=== PATIENT | female | born 1950 | race African-American/Black ===

== ENCOUNTER 2017-01-13 18:17 | Inpatient (IN) | payer MEDICARE, MEDICAID ==
--- NOTE | 2017-01-13 20:57 | ED Physician Chart ---
ED Chief Complaint/HPI - Patient Information Date Seen:: 01/13/17 Time Seen:: 20:45 Chief Complaint:: lesions both buttocks History of Present Illness:: 6 days ago patient developed a painful lesion on her left buttocks. This morning she noticed a lesion on the right buttocks. No chills or fever. In September of this year patient had head trauma and since then has had vertigo which is improving. She's had a CAT scan and MRI of her brain which were negative. Allergies:: Allergies Allergy/AdvReac Type Severity Reaction Status Date / Time Penicillins Allergy Verified 01/13/17 18:33 Vitals:: Vital Signs - 8 hr 01/13/17 18:33 Temp 98.1 F HR 66 RR 18 BP 138/77 O2 Sat % 97 Historian:: Patient Review:: Nurse's Note Reviewed ED Review of Systems - Review of Systems General/Constitutional: No fever, No chills Skin: Skin lesions Head: No headache Eyes: No loss of vision ENT: No earache Neck: No neck pain Cardio Vascular: No chest pain, No palpitations Pulmonary: No SOB GI: No nausea, No vomiting, No diarrhea G/U: No dysuria, No frequency, No nacturia Musculoskeletal: No bone or joint pain Endocrine: No polyuria, No polydipsia Psychiatric: Depression Hematopoietic: No bruising Allergic/Immuno: No urticaria Neurological: No syncope ED Past Medical History - Past Medical History Past Medical History: HTN, Arthritis, Other (fibromyalgia) Family History: Heart disease, HTN Social History: Non Smoker, No Alcohol, Other (quit smoking 1996) Surgical History: Cholecystectomy, other (gastric bypass; bilateral knee replacement) Psychiatricy History: Depression Medication: Reviewed Family Medical History - Family Member Mother Ethnicity: Non- ED Physical Exam - Physical Examination General/Constitutional: Well-developed, well-nourished, Alert, No distress Head: Atraumatic Eyes: Lids, conjuctiva normal, PERRL Other Skin comments:: Left hemibuttocks: 3 cm of induration with 10 cm of adjacent redness. Right hemibuttocks: 3 cm of induration with overlying redness ENMT: External ears, nose nl, TM canals nl, Nasal exam nl, Lips, teeth, gums nl Neck: No nuchal rigidity Respiratory: Nl effort/Exclusion, Clear to Auscultation, No Wheeze/Rhonchi/Rales Cardio Vascular: RRR, No murmur, gallop, rubs, NL S1 S2 GI: No tenderness/rebounding/guarding, No organomegaly, Nondistended : No CVA tenderness Extremities: Normal digits & nails Neuro/Psych: No focal deficits Misc: Normal back ED Labs/Radiology/EKG Results - Lab Results Results: Laboratory Results - last 24 hr 01/13/17 01/13/17 20:54 20:54 WBC 5.5 RBC 4.02 Hgb 11.5 L Hct 35.4 L MCV 88.0 MCH 28.6 MCHC Differential 32.5 RDW 13.8 Plt Count 227 MPV 8.3 Neutrophils % 43.1 Lymphocytes % 40.6 Monocytes % 9.3 Eosinophils % 6.4 H Basophils % 0.6 Sodium 137 Potassium 3.6 Chloride 107 Carbon Dioxide 25.8 Anion Gap 7.8 BUN 24 Creatinine 0.9 Est GFR ( Amer) > 60.0 Est GFR (Non-Af Amer) > 60.0 BUN/Creatinine Ratio 26.7 Glucose 86 Calcium 9.2 ED Assessment - Assessment General Assessment: Abscesses appear to be too deep in the tissue for me to comfortably I&D in the emergency department. ED Septic Shock - . Is Septic Shock (SBP<90, OR Lactate>4 mmol\L) present?: No - <6hrs of presentation: Vital Signs: Vital Signs - 8 hr 01/13/17 18:33 Temp 98.1 F HR 66 RR 18 BP 138/77 O2 Sat % 97 ED Reassessment (Disposition) - Reassessment Reassessment Condition:: Unchanged - Diagnosis Diagnosis:: Abscess both buttocks - Patient Disposition Spoke to:: Myron Dee Admitting Medical Physician:: Myron Dee Condition at Disposition:: Stable, Unchanged
[2017-01-13] MEDS ORDERED: Sodium Chloride 0.9% 1,000 ML IV ONE (21:01)
[2017-01-13] MEDS ORDERED: Vancomycin HCl 1.5 GM in Sodium Chloride 0.9% 500 ML IV ONE (21:02)
[2017-01-13 21:05] LABS: % BASOPHILS 0.6 % (0.0-2.0); % EOSINOPHILS 6.4 % (0.0-5.0); % LYMPHOCYTES 40.6 % (20.0-50.0); % MONOCYTES 9.3 % (2.0-10.0); % NEUTROPHILS 43.1 % (40.0-80.0); HEMATOCRIT 35.4 % (41.0-60); HEMOGLOBIN 11.5 gm/dL (12-16); MEAN CORPUSCULAR HEMOGLOBIN 28.6 pg (27.0-31.0); MEAN CORPUSCULAR HGB CONC 32.5 pg (28.0-36.0); MEAN PLATELET VOLUME 8.3 fl; NEUTROPHILE ABSOLUTE 2.4 Th/cmm (1.8-8.0); PLATELET COUNT 227 Th/cmm (150-400); RED BLOOD COUNT 4.02 Mil/cmm (3.80-5.10); RED CELL DISTRIBUTION WIDTH 13.8 % (11.5-20.0); WHITE BLOOD COUNT 5.5 Th/cmm (4.8-10.8)
[2017-01-13 21:16] LABS: ANION GAP 7.8 (7.0-16.0); BUN - UREA NITROGEN 24 mg/dL (7-25); BUN/CREATININE RATIO 26.7; CALCIUM SERUM 9.2 mg/dL (8.6-10.3); CARBON DIOXIDE 25.8 mEq/L (21.0-31.0); CHLORIDE 107 mEq/L (98-107); CREATININE - SERUM 0.9 mg/dL (0.6-1.2); GLUCOSE 86 mg/dL (70-105); POTASSIUM SERUM 3.6 mEq/L (3.5-5.1); SODIUM SERUM 137 mEq/L (136-145)
[2017-01-13] MEDS ORDERED: Morphine Sulfate 2 mg/mL 1mL Syr IVP PRN (22:12)
[2017-01-13] MEDS: Morphine Sulfate 2 mg/mL 1mL Syr IVP PRN (23:43)
--- NOTE | 2017-01-14 01:43 | Consultation ---
Consult Note - Consult Note Service Date: 01/13/17 Referring Physician: Myron Dee Consult Note: PHYSICIAN Consultation Note: Date of Admission: 01/13/17 Purpose of Consultation: left gluteal cellulitis. Chief Complaint: Patient SHANEKA MATSON was admitted to [facility] with CELLULITIS OF LEFT BUTTOCK. History of Present Illness: 66 year old female with history of HTN, obesity, admitted for tender,red swelling on the gluteal area. On initial evaluation,her temperature was 98.1 degree F an WBC Count was 5,500. Vanco IV and Zosyn IV was given and ID cosnult was called for antibiotic management. Past Medical History: Allergies Allergy/AdvReac Type Severity Reaction Status Date / Time Penicillins Allergy Verified 01/13/17 18:33 Vital Signs Temp 97.3 F 01/13/17 23:36 Pulse 70 01/13/17 23:36 Resp 19 01/13/17 23:36 BP 121/58 01/13/17 23:36 Pulse Ox 98 01/13/17 23:36 Home Medication Medication Instructions Recorded Type Acetaminophen [Tylenol] 650 mg PO Q6HR PRN 01/13/17 History Albuterol Sulfate [Proair 108 mcg IH Q4H PRN 01/13/17 History Respiclick] Bisacodyl [Dulcolax] 10 mg RC DAILY PRN 01/13/17 History Diazepam [Valium] 2.5 mg PO HS 01/13/17 History Enalapril Maleate [Vasotec*] 20 mg PO DAILY 01/13/17 History Gabapentin [Neurontin] 100 mg PO BID 01/13/17 History Hydroxyzine HCl 50 mg PO DAILY 01/13/17 History Magnesium Hydroxide [Milk of 30 ml PO DAILY PRN 01/13/17 History Magnesia] Meclizine HCl 25 mg PO TID 01/13/17 History Omeprazole 20.6 mg PO BID 01/13/17 History Ondansetron [Zofran ODT] 4 mg PO TID PRN 01/13/17 History Petrolatum,White/Lanolin [Vitamin 113 gm TP BID 01/13/17 History A & D Ointment] Scopolamine [Transderm-Scop] 1 each TD Q72H 01/13/17 History traMADol HCl [Ultram*] 50 mg PO Q6HR 01/13/17 History traMADol HCl [Ultram*] 100 mg PO Q12H PRN 01/13/17 History Current Medications Generic Name Dose Route Start Last Admin Trade Name Freq PRN Reason Stop Dose Admin Piperacillin Sod/Tazobactam 50 mls @ 100 mls/hr 01/13/17 22:15 Sod 3.375 gm/ Sodium Chloride IV 03/14/17 22:14 Q8H CHOCO Miscellaneous 1 ea 01/13/17 22:12 Vancomycin Iv Per Pharmacy 03/14/17 22:11 PRN PRN PROTOCOL Morphine Sulfate 1 mg 01/13/17 22:12 Morphine IVP 03/14/17 22:14 Q3H PRN Pain (Moderate) Morphine Sulfate 2 mg 01/13/17 22:12 01/13/17 23:43 Morphine IVP 03/14/17 22:14 2 mg Q3H PRN Administration Pain (Severe) Ondansetron HCl 4 mg 01/13/17 22:12 Zofran IV 03/14/17 22:14 Q4H PRN Nausea Review of Systems: A 12 point ROS was reviewed with the pertinent positive and negatives noted in the HPI. Social History Smoking Status Never smoker Drug Use No Alcohol Use No Family Medical History Family Medical History Start: 01/13/17 23: 36 Freq: ONCE Status: Active Document 01/13/17 23:36 SCOTT (Rec: 01/14/17 01:03 SCOTT [id number]) Family Medical History Mother History Unknown Yes Ethnicity Non- Living Status Unknown Hx Family Cancer No Hx Family Coronary Artery Disease No Hx Family Congestive Heart Failure No Hx Family Hypertension Yes Hx Family Stroke No Hx Family Diabetes No Hx Family Seizures No Hx Family Dementia No Hx Family AIDS No Hx Family HIV No Hx Family COPD No Hx Family Hepatitis No Hx Family Psychiatric Problems No Hx Family Tuberculosis No Physical Exam: General: Obese, not in acute distress. no fever. HEENT: Head normocephalic, atraumatic. Oral cavity moist, pink tongue, eyes: pallor present. Neck: Supple, no JVD, no carotuid bruit. Cardio: S1 and S2 WNL. Respiratory: CTAP Abdominal: Soft NT ND BS present. Genital/Urinary: deferred. Extremities: NCCE, tender firm erythematous swelling on the leteral aspect left gluteal area. Neurological: AAox3, no focal neurodeficit. Assessment: 1. Left gluteal abscess. 2. Obesity, Morbid. 3. HTN, 4. Arthritis. 5. Fibromyalgia Plan: Contue vancO IV and surgery consult. ANA thorpe. Thank you, Dr Dee for involving me in taking care of this patient. Signed, José Miguel Augustin M.D. [id number]
[2017-01-14] MEDS: Morphine Sulfate 2 mg/mL 1mL Syr IVP PRN ×4 (03:16→20:01)
[2017-01-14 04:15] VITALS: BP 121/58
[2017-01-14 07:40] LABS: % BASOPHILS 0.6 % (0.0-2.0); % EOSINOPHILS 7.1 % (0.0-5.0); % LYMPHOCYTES 42.3 % (20.0-50.0); % MONOCYTES 9.9 % (2.0-10.0); % NEUTROPHILS 40.1 % (40.0-80.0); HEMATOCRIT 32.4 % (41.0-60); HEMOGLOBIN 10.4 gm/dL (12-16); MEAN CELL VOLUME 88.4 fl (81-100); MEAN CORPUSCULAR HEMOGLOBIN 28.2 pg (27.0-31.0); MEAN CORPUSCULAR HGB CONC 31.9 pg (28.0-36.0); MEAN PLATELET VOLUME 8.7 fl; NEUTROPHILE ABSOLUTE 1.7 Th/cmm (1.8-8.0); PLATELET COUNT 220 Th/cmm (150-400); RED BLOOD COUNT 3.67 Mil/cmm (3.80-5.10); RED CELL DISTRIBUTION WIDTH 13.9 % (11.5-20.0); WHITE BLOOD COUNT 4.2 Th/cmm (4.8-10.8)
[2017-01-14] MEDS ORDERED: Albuterol Nebulizer 2.5mg/3mL HHN PRN (07:44)
[2017-01-14] MEDS ORDERED: Magnesium Hydroxide (MOM) 30 mL UDC PO PRN (07:44)
[2017-01-14 08:06] LABS: ANION GAP 8.4 (7.0-16.0); BUN - UREA NITROGEN 21 mg/dL (7-25); BUN/CREATININE RATIO 26.3; CALCIUM SERUM 8.9 mg/dL (8.6-10.3); CHLORIDE 108 mEq/L (98-107); CREATININE - SERUM 0.8 mg/dL (0.6-1.2); POTASSIUM SERUM 3.4 mEq/L (3.5-5.1); SODIUM SERUM 138 mEq/L (136-145)
--- NOTE | 2017-01-14 08:22 | Diagnostic Imaging Report ---
Exam: Chest x-ray HISTORY: Congestive heart failure. COMPARISON none. Upright examination a chest at 0747 hours reviewed. The study demonstrates no active pulmonic infiltrates or effusions. Mild left basilar atelectasis is noted. Bony thorax intact. Mediastinal structures midline. Left-sided PICC line terminates in left axillary vein. IMPRESSION: no acute disease, mild left basilar atelectasis.
[2017-01-14] MEDS: Pantoprazole 40 mg EC Tab PO SCH (08:36)
[2017-01-14] MEDS: Vitamin A/Vitamin D 5 gm Packet TP SCH ×2 (08:43→17:00)
[2017-01-14 09:26] LABS: GLUCOSE 96 mg/dL (70-105)
[2017-01-14] MEDS: Scopolamine 1.5 mg/ 72 hr TDM TD SCH (10:06)
--- NOTE | 2017-01-14 11:04 | History and Physical ---
History of Present Illness - HPI Chief Complaint: painful lesions both buttocks HPI: This a 66 year old female who is a resident of [facility] who is brought here to [facility] for painful bilateral buttock lesion for x1 week, patient did not have any fevers at the custodial. Vital Signs: Last Vital Signs Temp 98 F 01/14/17 07:00 Pulse 70 01/14/17 08:35 Resp 19 01/14/17 07:00 BP 122/60 01/14/17 08:35 Pulse Ox 98 01/14/17 07:00 Past Medical History Other History: HTN, Arthritis,fibromyalgia Family Medical History - Family Member Mother History Unknown: Yes Ethnicity: Non- Living Status: Unknown Hx Family Cancer: No Hx Family Coronary Artery Disease: No Hx Family Congestive Heart Failure: No Hx Family Hypertension: Yes Hx Family Stroke: No Hx Family Diabetes: No Hx Family Seizures: No Hx Family Dementia: No Hx Family AIDS: No Hx Family HIV: No Hx Family COPD: No Hx Family Hepatitis: No Hx Family Psychiatric Problems: No Hx Family Tuberculosis: No Social History Smoke: Quit Alcohol: None Drugs: None Lives: Longterm - Medications Home Medications: Home Medication Medication Instructions Recorded Type Acetaminophen [Tylenol] 650 mg PO Q6HR PRN 01/13/17 History Albuterol Sulfate [Proair 108 mcg IH Q4H PRN 01/13/17 History Respiclick] Bisacodyl [Dulcolax] 10 mg RC DAILY PRN 01/13/17 History Diazepam [Valium] 2.5 mg PO HS 01/13/17 History Enalapril Maleate [Vasotec*] 20 mg PO DAILY 01/13/17 History Gabapentin [Neurontin] 100 mg PO BID 01/13/17 History Hydroxyzine HCl 50 mg PO DAILY 01/13/17 History Magnesium Hydroxide [Milk of 30 ml PO DAILY PRN 01/13/17 History Magnesia] Meclizine HCl 25 mg PO TID 01/13/17 History Omeprazole 20.6 mg PO BID 01/13/17 History Ondansetron [Zofran ODT] 4 mg PO TID PRN 01/13/17 History Petrolatum,White/Lanolin [Vitamin 113 gm TP BID 01/13/17 History A & D Ointment] Scopolamine [Transderm-Scop] 1 each TD Q72H 01/13/17 History traMADol HCl [Ultram*] 50 mg PO Q6HR 01/13/17 History traMADol HCl [Ultram*] 100 mg PO Q12H PRN 01/13/17 History - Allergies Allergies/Adverse Reactions: Allergies Allergy/AdvReac Type Severity Reaction Status Date / Time Penicillins Allergy Verified 01/13/17 18:33 Review of Systems - Review of Systems Constitutional: Report: No Significant Eyes: Report: No Significant ENT: Report: No Significant Respiratory: Report: No Significant Cardiovascular: Report: No Significant Gastrointestinal: Report: No Significant Genitourinary: Report: No Significant Musculoskeletal: Report: No Significant Skin: Report: Other (bilateral buttock cellulitis ) Neurological: Report: No Significant Physical Exam - Physical Exam HEENT: Report: Ears Nose Throat within normal limits Neck: Report: Within normal limits Cardiovascular Systems: Report: +s1/s2 noted Respiratory: Report: Breath Sounds are within normal limits Abdomen: Report: Non-tender to palpation Back: Report: Inspection of back is within normal limits. Extremities: Report: Non-tender to palpation. Skin: Report: Color of skin is within normal limits, Warm, Other (bilateral buttock cellulitis) Neuro/Psych: Report: Mood affect is within normal limits, A+Ox3 - Lab Results All Lab Results last 24 hours: Laboratory Results - last 24 hr 01/14/17 01/14/17 01/14/17 03:19 07:00 07:00 WBC 4.2 L D RBC 3.67 L Hgb 10.4 L Hct 32.4 L MCV 88.4 MCH 28.2 MCHC Differential 31.9 RDW 13.9 Plt Count 220 MPV 8.7 Neutrophils % 40.1 Lymphocytes % 42.3 Monocytes % 9.9 Eosinophils % 7.1 H Basophils % 0.6 Sodium 138 Potassium 3.4 L Chloride 108 H Carbon Dioxide 25.0 Anion Gap 8.4 BUN 21 Creatinine 0.8 Est GFR ( Amer) > 60.0 Est GFR (Non-Af Amer) > 60.0 BUN/Creatinine Ratio 26.3 Glucose 96 D POC Glucose 81 Calcium 8.9 - Assessment Assessment: Current Active Problems Problem Status Onset LEFT HIP PAIN AND SWELLING Acute hypokalemia bilateral buttock cellulitis HTN Arthritis fibromyalgia - Plan Plan: surgical consult for i+d empiric ivantibiotics id consult follow up labs in am
--- NOTE | 2017-01-14 11:50 | Infectious Disease Prog Note ---
Infectious Disease Subjective - Review of Systems Service Date: 01/14/17 Subjective: no change. painful left gluteal area. Infectious Disease Objective - Results Result Diagrams: 01/14/17 07:00 01/14/17 07:00 Recent Labs: Laboratory Last Values WBC 4.2 Th/cmm (4.8-10.8) L D 01/14/17 07:00 RBC 3.67 Mil/cmm (3.80-5.10) L 01/14/17 07:00 Hgb 10.4 gm/dL (12-16) L 01/14/17 07:00 Hct 32.4 % (41.0-60) L 01/14/17 07:00 MCV 88.4 fl (81-100) 01/14/17 07:00 MCH 28.2 pg (27.0-31.0) 01/14/17 07:00 MCHC Differential 31.9 pg (28.0-36.0) 01/14/17 07:00 RDW 13.9 % (11.5-20.0) 01/14/17 07:00 Plt Count 220 Th/cmm (150-400) 01/14/17 07:00 MPV 8.7 fl 01/14/17 07:00 Neutrophils % 40.1 % (40.0-80.0) 01/14/17 07:00 Lymphocytes % 42.3 % (20.0-50.0) 01/14/17 07:00 Monocytes % 9.9 % (2.0-10.0) 01/14/17 07:00 Eosinophils % 7.1 % (0.0-5.0) H 01/14/17 07:00 Basophils % 0.6 % (0.0-2.0) 01/14/17 07:00 Sodium 138 mEq/L (136-145) 01/14/17 07:00 Potassium 3.4 mEq/L (3.5-5.1) L 01/14/17 07:00 Chloride 108 mEq/L (98-107) H 01/14/17 07:00 Carbon Dioxide 25.0 mEq/L (21.0-31.0) 01/14/17 07:00 Anion Gap 8.4 (7.0-16.0) 01/14/17 07:00 BUN 21 mg/dL (7-25) 01/14/17 07:00 Creatinine 0.8 mg/dL (0.6-1.2) 01/14/17 07:00 Est GFR ( Amer) > 60.0 ml/min (>90) 01/14/17 07:00 Est GFR (Non-Af Amer) > 60.0 ml/min 01/14/17 07:00 BUN/Creatinine Ratio 26.3 01/14/17 07:00 Glucose 96 mg/dL (70-105) D 01/14/17 07:00 POC Glucose 81 MG/DL (70 - 105) 01/14/17 03:19 Calcium 8.9 mg/dL (8.6-10.3) 01/14/17 07:00 - Physical Exam Vitals and I&O: Vital Signs Temp 98.3 F 01/14/17 08:00 Pulse 70 01/14/17 08:35 Resp 18 01/14/17 08:00 BP 122/60 01/14/17 08:35 Pulse Ox 100 01/14/17 08:00 Intake & Output 01/13/17 01/14/17 01/14/17 18:59 06:59 18:59 Weight (lbs) 120.202 kg Active Medications: Current Medications Acetaminophen (Tylenol) 650 mg PO Q6HR PRN PRN Reason: MILD PAIN OR TEMP >100.4 Stop: 03/15/17 07:43 Albuterol Sulfate (Albuterol 2.5mg/3ml Neb Ud) 2.5 mg HHN Q4HRT PRN PRN Reason: SOB/WHEEZING Stop: 03/15/17 07:43 Bisacodyl (Dulcolax 10 Mg Supp) 10 mg RC DAILY PRN PRN Reason: IF MOM INEFFECTIVE Stop: 03/15/17 07:43 Diazepam (Valium) 2.5 mg PO HS CHOCO PRN Reason: Protocol Stop: 03/15/17 20:59 Enalapril Maleate (Vasotec) 20 mg PO DAILY [facility] Stop: 03/15/17 08:59 Last Admin: 01/14/17 08:35 Dose: 20 mg Gabapentin (Neurontin) 100 mg PO BID [facility] Stop: 03/15/17 08:59 Last Admin: 01/14/17 09:07 Dose: 100 mg Hydroxyzine HCl (Atarax) 50 mg PO DAILY [facility] Stop: 03/15/17 08:59 Last Admin: 01/14/17 08:34 Dose: 50 mg Vancomycin HCl 1.5 gm/ Sodium (Chloride) 500 mls @ 250 mls/hr IV Q12H [facility] Stop: 03/15/17 10:59 Magnesium Hydroxide (Milk Of Magnesia) 30 ml PO DAILY PRN PRN Reason: Constipation Stop: 03/15/17 07:43 Meclizine HCl (Antivert) 25 mg PO TID PRN PRN Reason: VERTIGO Stop: 03/15/17 08:59 Miscellaneous (Vancomycin Iv Per Pharmacy) 1 ea MC PRN PRN PRN Reason: PROTOCOL Stop: 03/14/17 22:11 Morphine Sulfate (Morphine) 1 mg IVP Q3H PRN PRN Reason: Pain (Moderate) Stop: 03/14/17 22:14 Morphine Sulfate (Morphine) 2 mg IVP Q3H PRN PRN Reason: Pain (Severe) Stop: 03/14/17 22:14 Last Admin: 01/14/17 06:36 Dose: 2 mg Ondansetron HCl (Zofran) 4 mg IV Q4H PRN PRN Reason: Nausea Stop: 03/14/17 22:14 Ondansetron HCl (Zofran Odt) 4 mg PO TID PRN PRN Reason: Nausea / Vomiting Stop: 03/15/17 07:43 Pantoprazole Sodium (Protonix) 40 mg PO DAILY [facility] Stop: 03/15/17 08:59 Last Admin: 01/14/17 08:36 Dose: 40 mg Scopolamine (Transderm Scop Patch) 1 patch TD Q72H [facility] Stop: 03/15/17 08:59 Last Admin: 01/14/17 10:06 Dose: 1 patch Tramadol HCl (Ultram) 100 mg PO Q12H PRN PRN Reason: BREAK THROUGH PAIN Stop: 03/15/17 07:43 Last Admin: 01/14/17 09:08 Dose: 100 mg Vitamin A (Vitamin A & D) 5 gm TP BID [facility] Stop: 03/15/17 08:59 Last Admin: 01/14/17 08:43 Dose: 5 gm General: no acute distress, well developed, well nourished HEENT: atraumatic, normocephalic, PERRLA Neck: supple, thyromegaly, lymphadenopathy Cardiovascular: S1S2, regular Lungs: clear to auscultation bilaterally, clear to percussion Abdomen: soft, no tender, no distended, no mass Extremities: no cyanosis, no clubbing Neurological: no awake Infectious Disease Assmt/Plan - Problem List Patient Problems: All Active Problems LEFT HIP PAIN AND SWELLING (Acute) - Assessment Assessment: 1. Left gluteal abscess. 2. Obesity, Morbid. 3. HTN, 4. Arthritis. 5. Fibromyalgia Plan: Contue vancO IV and surgery consult.
[2017-01-14] MEDS ORDERED: Meperidine 25 mg/mL 1mL Syr IVP PRN (15:08)
[2017-01-14] MEDS ORDERED: Lactated Ringer 1,000 ML IV SCH (15:15)
[2017-01-14] MEDS: Vancomycin HCl 1.5 GM in Sodium Chloride 0.9% 500 ML IV SCH ×2 (17:00→22:52)
--- NOTE | 2017-01-14 17:17 | History & Physical ---
ADMIT DATE: 01/14/2017 SURGICAL CONSULTATION REFERRING PHYSICIAN: Dr. Dee. REASON FOR CONSULTATION: Abscess, left and right buttocks. Thank you for referring this patient to me. HISTORY OF PRESENT ILLNESS: This is a 66-year-old female who started noticing swelling and increasing pain in the left buttock about 6 days ago. Denies any fever associated with this. She has an abscess, which still present in the right buttock as well. PAST MEDICAL HISTORY: Includes head trauma from a year ago, for which developed vertigo, which is improving. She has obesity and sleep apnea as well. LABORATORY STUDIES: On admission, the WBC was normal, hemoglobin 11.5. The chemistry, the blood sugar was 86, rest of were within normal limits. DIAGNOSTIC DATA: Chest x-ray is unremarkable. She has been seen by Dr. Guy Augustin for Infectious Disease consult and the patient is started on antibiotics. PHYSICAL EXAMINATION: GENERAL: Now, the patient is oriented. She is extremely obese. There is a left buttock abscess, which is tender and with surrounding cellulitis and on the right side one that is appears to be healing. She denies any trauma in this area, but apparently she lies down on this side. PLAN: We will do incision and drainage under moderate sedation and local anesthesia. JOB# [id number]
--- NOTE | 2017-01-14 20:52 | Operative Report ---
DATE OF SURGERY: 01/14/2017 PREOPERATIVE DIAGNOSES: 1. Abscess, left buttocks. 2. Abscess, right buttocks. 3. Morbid obesity. 4. Sleep apnea. 5. Traumatic head injury with vertigo. POSTOPERATIVE DIAGNOSES: 1. Abscess, left buttocks. 2. Abscess, right buttocks. 3. Morbid obesity. 4. Sleep apnea. 5. Traumatic head injury with vertigo. OPERATION DONE: 1. Incision and drainage of abscess, left hip. 2. Incision and drainage of abscess, right hip. SURGEON: Gunner Foreman MD ANESTHESIA: MAC. ANESTHESIOLOGIST: Lawanda Barcenas M.D. ESTIMATED BLOOD LOSS: None. PROCEDURE: The patient was given IV sedation. Both buttocks were prepped with Betadine and draped. A 1% lidocaine was used to infiltrate the area surrounding the abscess. An incision was made across the dome of the abscess and the abscess was drained. Cultures were taken. Following satisfactory hemostasis, the wound was packed with iodoform gauze. This was done for both buttocks abscess. A 4 x 4s and tapes were then applied. The patient tolerated the procedure well. JOB# [id number]
[2017-01-14] MEDS ORDERED: HYDROmorphone 1 mg/mL 1mL Syr IVP PRN (22:00)
[2017-01-14] MEDS ORDERED: HYDROmorphone 2 mg/mL 1mL Vial IVP PRN (22:00)
[2017-01-15 05:50] LABS: RED CELL DISTRIBUTION WIDTH 13.7 % (11.5-20.0)
[2017-01-15 05:56] LABS: % BASOPHILS 0.4 % (0.0-2.0); % LYMPHOCYTES 31.3 % (20.0-50.0); % MONOCYTES 10.7 % (2.0-10.0); % NEUTROPHILS 52.6 % (40.0-80.0); HEMATOCRIT 33.3 % (41.0-60); MEAN CELL VOLUME 88.1 fl (81-100); MEAN CORPUSCULAR HEMOGLOBIN 29.2 pg (27.0-31.0); MEAN CORPUSCULAR HGB CONC 33.1 pg (28.0-36.0); MEAN PLATELET VOLUME 9.3 fl; NEUTROPHILE ABSOLUTE 2.7 Th/cmm (1.8-8.0); PLATELET COUNT 209 Th/cmm (150-400); RED BLOOD COUNT 3.78 Mil/cmm (3.80-5.10)
[2017-01-15 05:58] LABS: WHITE BLOOD COUNT 5.2 Th/cmm (4.8-10.8)
[2017-01-15 05:59] LABS: ALKALINE PHOSPHATASE 72 U/L (34-104); ANION GAP 7.2 (7.0-16.0); BILIRUBIN,TOTAL 0.4 mg/dL (0.3-1.0); BUN - UREA NITROGEN 15 mg/dL (7-25); BUN/CREATININE RATIO 18.8; CALCIUM SERUM 9.1 mg/dL (8.6-10.3); CARBON DIOXIDE 27.5 mEq/L (21.0-31.0); CHLORIDE 104 mEq/L (98-107); CREATININE - SERUM 0.8 mg/dL (0.6-1.2); POTASSIUM SERUM 3.7 mEq/L (3.5-5.1); SGOT 19 U/L (13-39); SGPT/ALT 15 U/L (7-52); SODIUM SERUM 135 mEq/L (136-145)
[2017-01-15 06:00] LABS: GLUCOSE 73 mg/dL (70-105)
[2017-01-15] MEDS: Pantoprazole 40 mg EC Tab PO SCH (08:29)
[2017-01-15] MEDS: Vitamin A/Vitamin D 5 gm Packet TP SCH ×2 (08:32→17:11)
[2017-01-15] MEDS: Morphine Sulfate 2 mg/mL 1mL Syr IVP PRN ×3 (10:06→23:12)
--- NOTE | 2017-01-16 06:39 | Progress Notes ---
DATE: 01/15/2017 SUBJECTIVE: The patient was seen in her room, lying on the bed. The patient denies any pain or discomfort. Otherwise, the patient appeared to be comfortable in no acute distress. OBJECTIVE: VITAL SIGNS: Temperature 98.3, heart rate 73, blood pressure 127/72, respirations 16, 96% on room air. HEENT: Head is atraumatic and normocephalic. Eyes: Bilateral conjunctivae are clear. Bilateral pupils are equally round and reactive. NECK: Supple. No JVD. CARDIOVASCULAR: S1 and S2, without murmur. PULMONARY: Clear to auscultation. GASTROINTESTINAL: Soft and nontender without guarding. Positive bowel sounds. MUSCULOSKELETAL: No clubbing, no cyanosis noted. ASSESSMENT: 1. Abscess bilateral buttocks, status post excision and drainage on the left and right hip. 2. Morbid obesity. 3. Sleep apnea. 4. Arthritis. 5. Hypertension. 6. Fibromyalgia. PLAN: We will keep the patient inpatient and we will continue IV antibiotics per ID doctor. We will continue to monitor incisional site for any signs of infection. Treatment plan were discussed with the patient's nurse. Treatment plans were discussed with Dr. Dee. JOB# [id number]
--- NOTE | 2017-01-16 08:12 | General Progress Note ---
Subjective - Review of Systems Events since last encounter: patient is awake in no distress comfortable Objective - Results Result Diagrams: 01/15/17 05:10 01/15/17 05:10 Recent Labs: Laboratory Last Values WBC 5.2 Th/cmm (4.8-10.8) D 01/15/17 05:10 RBC 3.78 Mil/cmm (3.80-5.10) L 01/15/17 05:10 Hgb 11.0 gm/dL (12-16) L 01/15/17 05:10 Hct 33.3 % (41.0-60) L 01/15/17 05:10 MCV 88.1 fl (81-100) 01/15/17 05:10 MCH 29.2 pg (27.0-31.0) 01/15/17 05:10 MCHC Differential 33.1 pg (28.0-36.0) 01/15/17 05:10 RDW 13.7 % (11.5-20.0) 01/15/17 05:10 Plt Count 209 Th/cmm (150-400) 01/15/17 05:10 MPV 9.3 fl 01/15/17 05:10 Neutrophils % 52.6 % (40.0-80.0) 01/15/17 05:10 Lymphocytes % 31.3 % (20.0-50.0) 01/15/17 05:10 Monocytes % 10.7 % (2.0-10.0) H 01/15/17 05:10 Eosinophils % 5.0 % (0.0-5.0) 01/15/17 05:10 Basophils % 0.4 % (0.0-2.0) 01/15/17 05:10 Sodium 135 mEq/L (136-145) L 01/15/17 05:10 Potassium 3.7 mEq/L (3.5-5.1) 01/15/17 05:10 Chloride 104 mEq/L (98-107) 01/15/17 05:10 Carbon Dioxide 27.5 mEq/L (21.0-31.0) 01/15/17 05:10 Anion Gap 7.2 (7.0-16.0) 01/15/17 05:10 BUN 15 mg/dL (7-25) 01/15/17 05:10 Creatinine 0.8 mg/dL (0.6-1.2) 01/15/17 05:10 Est GFR ( Amer) > 60.0 ml/min (>90) 01/15/17 05:10 Est GFR (Non-Af Amer) > 60.0 ml/min 01/15/17 05:10 BUN/Creatinine Ratio 18.8 01/15/17 05:10 Glucose 73 mg/dL (70-105) D 01/15/17 05:10 POC Glucose 81 MG/DL (70 - 105) 01/14/17 03:19 Calcium 9.1 mg/dL (8.6-10.3) 01/15/17 05:10 Total Bilirubin 0.4 mg/dL (0.3-1.0) 01/15/17 05:10 AST 19 U/L (13-39) 01/15/17 05:10 ALT 15 U/L (7-52) 01/15/17 05:10 Alkaline Phosphatase 72 U/L (34-104) 01/15/17 05:10 Total Protein 7.1 gm/dL (6.0-8.3) 01/15/17 05:10 Albumin 3.5 gm/dL (3.7-5.3) L 01/15/17 05:10 Globulin 3.6 gm/dL 01/15/17 05:10 Albumin/Globulin Ratio 1.0 (1.0-1.8) 01/15/17 05:10 Vancomycin Trough 19.6 ug/mL (10-20) 01/15/17 10:00 - Physical Exam Vitals and I&O: Vital Signs Temp 98.2 F 01/16/17 04:00 Pulse 77 01/16/17 04:00 Resp 20 01/16/17 04:00 BP 136/77 01/16/17 04:00 Pulse Ox 98 01/16/17 04:00 Intake & Output 01/15/17 01/16/17 01/16/17 18:59 06:59 18:59 Intake Total 2400 250 Balance 2400 250 Weight (lbs) 119.748 kg 122.64 kg Intake: Intake, IV Amount 750 250 Vancomycin HCl 1 gm In 250 250 Sodium Chloride 0.9% 250 ml @ 165 mls/hr IV Q12HR@ 1100,2300 [facility] Rx#: [id number] Vancomycin HCl 1.5 gm In 500 Sodium Chloride 0.9% 500 ml @ 250 mls/hr IV Q12H [facility] Rx#:[id number] Oral 1650 Other: # Voids 4 # Bowel Movements 0 Active Medications: Current Medications Acetaminophen (Tylenol) 650 mg PO Q6HR PRN PRN Reason: MILD PAIN OR TEMP >100.4 Stop: 03/15/17 07:43 Last Admin: 01/15/17 08:36 Dose: 650 mg Albuterol Sulfate (Albuterol 2.5mg/3ml Neb Ud) 2.5 mg HHN Q4HRT PRN PRN Reason: SOB/WHEEZING Stop: 03/15/17 07:43 Bisacodyl (Dulcolax 10 Mg Supp) 10 mg RC DAILY PRN PRN Reason: IF MOM INEFFECTIVE Stop: 03/15/17 07:43 Diazepam (Valium) 2.5 mg PO HS [facility] PRN Reason: Protocol Stop: 03/15/17 20:59 Last Admin: 01/15/17 20:39 Dose: 2.5 mg Enalapril Maleate (Vasotec) 20 mg PO DAILY [facility] Stop: 03/15/17 08:59 Last Admin: 01/15/17 08:29 Dose: 20 mg Gabapentin (Neurontin) 100 mg PO BID [facility] Stop: 03/15/17 08:59 Last Admin: 01/15/17 17:10 Dose: 100 mg Hydromorphone HCl (Dilaudid) 1 mg IVP Q3HR PRN PRN Reason: pain Stop: 03/15/17 21:59 Hydromorphone HCl (Dilaudid) 2 mg IVP Q3HR PRN PRN Reason: Severe Pain Stop: 03/15/17 21:59 Last Admin: 01/14/17 22:52 Dose: 2 mg Hydroxyzine HCl (Atarax) 50 mg PO QID [facility] Stop: 03/16/17 05:59 Last Admin: 01/15/17 22:19 Dose: Not Given Vancomycin HCl 1 gm/ Sodium (Chloride) 250 mls @ 165 mls/hr IV Q12HR@1100,2300 [facility] Stop: 03/16/17 11:09 Last Infusion: 01/16/17 06:24 Dose: Infused Lidocaine HCl (Xylocaine Viscous 2%) 15 ml PO QID PRN PRN Reason: Mouth Sore Pain Stop: 03/15/17 17:41 Last Admin: 01/15/17 08:29 Dose: 15 ml Magnesium Hydroxide (Milk Of Magnesia) 30 ml PO DAILY PRN PRN Reason: Constipation Stop: 03/15/17 07:43 Meclizine HCl (Antivert) 25 mg PO TID PRN PRN Reason: VERTIGO Stop: 03/15/17 08:59 Miscellaneous (Vancomycin Iv Per Pharmacy) 1 ea [facility] PRN PRN PRN Reason: PROTOCOL Stop: 03/14/17 22:11 Morphine Sulfate (Morphine) 2 mg IVP Q3H PRN PRN Reason: Pain (Severe) Stop: 03/16/17 09:56 Last Admin: 01/15/17 23:12 Dose: 2 mg Ondansetron HCl (Zofran) 4 mg IV Q4H PRN PRN Reason: Nausea Stop: 03/14/17 22:14 Ondansetron HCl (Zofran Odt) 4 mg PO TID PRN PRN Reason: Nausea / Vomiting Stop: 03/15/17 07:43 Pantoprazole Sodium (Protonix) 40 mg PO DAILY [facility] Stop: 03/15/17 08:59 Last Admin: 01/15/17 08:29 Dose: 40 mg Scopolamine (Transderm Scop Patch) 1 patch TD Q72H [facility] Stop: 03/15/17 08:59 Last Admin: 01/14/17 10:06 Dose: 1 patch Tramadol HCl (Ultram) 100 mg PO Q6HR PRN PRN Reason: BREAK THROUGH PAIN Stop: 03/15/17 07:43 Last Admin: 01/15/17 20:39 Dose: 100 mg Vitamin A (Vitamin A & D) 5 gm TP BID [facility] Stop: 03/15/17 08:59 Last Admin: 01/15/17 17:11 Dose: 5 gm Assessment/Plan - Problem List Patient Problems: All Active Problems LEFT HIP PAIN AND SWELLING (Acute)
[2017-01-16] MEDS: Pantoprazole 40 mg EC Tab PO SCH (08:18)
[2017-01-16] MEDS: Vitamin A/Vitamin D 5 gm Packet TP SCH ×2 (08:18→17:42)
[2017-01-16] MEDS: Morphine Sulfate 2 mg/mL 1mL Syr IVP PRN ×3 (10:44→20:59)
--- NOTE | 2017-01-16 12:30 | General Progress Note ---
Subjective - Review of Systems Service Date: 01/16/17 Events since last encounter: local wound care history of head trauma, check carotid doppler Objective - Results Result Diagrams: 01/15/17 05:10 01/15/17 05:10 Recent Labs: Laboratory Last Values WBC 5.2 Th/cmm (4.8-10.8) D 01/15/17 05:10 RBC 3.78 Mil/cmm (3.80-5.10) L 01/15/17 05:10 Hgb 11.0 gm/dL (12-16) L 01/15/17 05:10 Hct 33.3 % (41.0-60) L 01/15/17 05:10 MCV 88.1 fl (81-100) 01/15/17 05:10 MCH 29.2 pg (27.0-31.0) 01/15/17 05:10 MCHC Differential 33.1 pg (28.0-36.0) 01/15/17 05:10 RDW 13.7 % (11.5-20.0) 01/15/17 05:10 Plt Count 209 Th/cmm (150-400) 01/15/17 05:10 MPV 9.3 fl 01/15/17 05:10 Neutrophils % 52.6 % (40.0-80.0) 01/15/17 05:10 Lymphocytes % 31.3 % (20.0-50.0) 01/15/17 05:10 Monocytes % 10.7 % (2.0-10.0) H 01/15/17 05:10 Eosinophils % 5.0 % (0.0-5.0) 01/15/17 05:10 Basophils % 0.4 % (0.0-2.0) 01/15/17 05:10 Sodium 135 mEq/L (136-145) L 01/15/17 05:10 Potassium 3.7 mEq/L (3.5-5.1) 01/15/17 05:10 Chloride 104 mEq/L (98-107) 01/15/17 05:10 Carbon Dioxide 27.5 mEq/L (21.0-31.0) 01/15/17 05:10 Anion Gap 7.2 (7.0-16.0) 01/15/17 05:10 BUN 15 mg/dL (7-25) 01/15/17 05:10 Creatinine 0.8 mg/dL (0.6-1.2) 01/15/17 05:10 Est GFR ( Amer) > 60.0 ml/min (>90) 01/15/17 05:10 Est GFR (Non-Af Amer) > 60.0 ml/min 01/15/17 05:10 BUN/Creatinine Ratio 18.8 01/15/17 05:10 Glucose 73 mg/dL (70-105) D 01/15/17 05:10 POC Glucose 81 MG/DL (70 - 105) 01/14/17 03:19 Calcium 9.1 mg/dL (8.6-10.3) 01/15/17 05:10 Total Bilirubin 0.4 mg/dL (0.3-1.0) 01/15/17 05:10 AST 19 U/L (13-39) 01/15/17 05:10 ALT 15 U/L (7-52) 01/15/17 05:10 Alkaline Phosphatase 72 U/L (34-104) 01/15/17 05:10 Total Protein 7.1 gm/dL (6.0-8.3) 01/15/17 05:10 Albumin 3.5 gm/dL (3.7-5.3) L 01/15/17 05:10 Globulin 3.6 gm/dL 01/15/17 05:10 Albumin/Globulin Ratio 1.0 (1.0-1.8) 01/15/17 05:10 Vancomycin Trough 19.6 ug/mL (10-20) 01/15/17 10:00 - Physical Exam Vitals and I&O: Vital Signs Temp 97.7 F 01/16/17 08:00 Pulse 73 01/16/17 08:18 Resp 12 01/16/17 08:11 BP 160/80 01/16/17 08:18 Pulse Ox 97 01/16/17 08:11 Intake & Output 01/15/17 01/16/17 01/16/17 18:59 06:59 18:59 Intake Total 2400 250 Balance 2400 250 Weight (lbs) 119.748 kg 122.64 kg Intake: Intake, IV Amount 750 250 Vancomycin HCl 1 gm In 250 250 Sodium Chloride 0.9% 250 ml @ 165 mls/hr IV Q12HR@ 1100,2300 [facility] Rx#: [id number] Vancomycin HCl 1.5 gm In 500 Sodium Chloride 0.9% 500 ml @ 250 mls/hr IV Q12H [facility] Rx#:[id number] Oral 1650 Other: # Voids 4 # Bowel Movements 0 Active Medications: Current Medications Acetaminophen (Tylenol) 650 mg PO Q6HR PRN PRN Reason: MILD PAIN OR TEMP >100.4 Stop: 03/15/17 07:43 Last Admin: 01/15/17 08:36 Dose: 650 mg Albuterol Sulfate (Albuterol 2.5mg/3ml Neb Ud) 2.5 mg HHN Q4HRT PRN PRN Reason: SOB/WHEEZING Stop: 03/15/17 07:43 Bisacodyl (Dulcolax 10 Mg Supp) 10 mg RC DAILY PRN PRN Reason: IF MOM INEFFECTIVE Stop: 03/15/17 07:43 Diazepam (Valium) 2.5 mg PO HS [facility] PRN Reason: Protocol Stop: 03/15/17 20:59 Last Admin: 01/15/17 20:39 Dose: 2.5 mg Enalapril Maleate (Vasotec) 20 mg PO DAILY [facility] Stop: 03/15/17 08:59 Last Admin: 01/16/17 08:18 Dose: 20 mg Gabapentin (Neurontin) 100 mg PO BID [facility] Stop: 03/15/17 08:59 Last Admin: 01/16/17 08:18 Dose: 100 mg Hydromorphone HCl (Dilaudid) 1 mg IVP Q3HR PRN PRN Reason: pain Stop: 03/15/17 21:59 Hydromorphone HCl (Dilaudid) 2 mg IVP Q3HR PRN PRN Reason: Severe Pain Stop: 03/15/17 21:59 Last Admin: 01/14/17 22:52 Dose: 2 mg Hydroxyzine HCl (Atarax) 50 mg PO QID [facility] Stop: 03/16/17 05:59 Last Admin: 01/16/17 08:18 Dose: 50 mg Vancomycin HCl 1 gm/ Sodium (Chloride) 250 mls @ 165 mls/hr IV Q12HR@1100,2300 [facility] Stop: 03/16/17 11:09 Last Admin: 01/16/17 10:46 Dose: 165 mls/hr Lidocaine HCl (Xylocaine Viscous 2%) 15 ml PO QID PRN PRN Reason: Mouth Sore Pain Stop: 03/15/17 17:41 Last Admin: 01/15/17 08:29 Dose: 15 ml Magnesium Hydroxide (Milk Of Magnesia) 30 ml PO DAILY PRN PRN Reason: Constipation Stop: 03/15/17 07:43 Meclizine HCl (Antivert) 25 mg PO TID PRN PRN Reason: VERTIGO Stop: 03/15/17 08:59 Miscellaneous (Vancomycin Iv Per Pharmacy) 1 ea [facility] PRN PRN PRN Reason: PROTOCOL Stop: 03/14/17 22:11 Morphine Sulfate (Morphine) 2 mg IVP Q3H PRN PRN Reason: Pain (Severe) Stop: 03/16/17 09:56 Last Admin: 01/16/17 10:44 Dose: 2 mg Ondansetron HCl (Zofran) 4 mg IV Q4H PRN PRN Reason: Nausea Stop: 03/14/17 22:14 Ondansetron HCl (Zofran Odt) 4 mg PO TID PRN PRN Reason: Nausea / Vomiting Stop: 03/15/17 07:43 Pantoprazole Sodium (Protonix) 40 mg PO DAILY [facility] Stop: 03/15/17 08:59 Last Admin: 01/16/17 08:18 Dose: 40 mg Scopolamine (Transderm Scop Patch) 1 patch TD Q72H [facility] Stop: 03/15/17 08:59 Last Admin: 01/14/17 10:06 Dose: 1 patch Tramadol HCl (Ultram) 100 mg PO Q6HR PRN PRN Reason: BREAK THROUGH PAIN Stop: 03/15/17 07:43 Last Admin: 01/15/17 20:39 Dose: 100 mg Vitamin A (Vitamin A & D) 5 gm TP BID [facility] Stop: 03/15/17 08:59 Last Admin: 01/16/17 08:18 Dose: 5 gm Assessment/Plan - Problem List Patient Problems: All Active Problems LEFT HIP PAIN AND SWELLING (Acute)
[2017-01-16] MEDS ORDERED: Probiotic Screen MC PRN (14:42)
--- NOTE | 2017-01-16 16:24 | Infectious Disease Prog Note ---
Infectious Disease Subjective - Review of Systems Service Date: 01/16/17 Events since last encounter: I and D was performed on 01/14/2017. Subjective: no change. painful left gluteal area, improving. Congested nose. Infectious Disease Objective - Results Result Diagrams: 01/15/17 05:10 01/15/17 05:10 Recent Labs: Laboratory Last Values WBC 5.2 Th/cmm (4.8-10.8) D 01/15/17 05:10 RBC 3.78 Mil/cmm (3.80-5.10) L 01/15/17 05:10 Hgb 11.0 gm/dL (12-16) L 01/15/17 05:10 Hct 33.3 % (41.0-60) L 01/15/17 05:10 MCV 88.1 fl (81-100) 01/15/17 05:10 MCH 29.2 pg (27.0-31.0) 01/15/17 05:10 MCHC Differential 33.1 pg (28.0-36.0) 01/15/17 05:10 RDW 13.7 % (11.5-20.0) 01/15/17 05:10 Plt Count 209 Th/cmm (150-400) 01/15/17 05:10 MPV 9.3 fl 01/15/17 05:10 Neutrophils % 52.6 % (40.0-80.0) 01/15/17 05:10 Lymphocytes % 31.3 % (20.0-50.0) 01/15/17 05:10 Monocytes % 10.7 % (2.0-10.0) H 01/15/17 05:10 Eosinophils % 5.0 % (0.0-5.0) 01/15/17 05:10 Basophils % 0.4 % (0.0-2.0) 01/15/17 05:10 Sodium 135 mEq/L (136-145) L 01/15/17 05:10 Potassium 3.7 mEq/L (3.5-5.1) 01/15/17 05:10 Chloride 104 mEq/L (98-107) 01/15/17 05:10 Carbon Dioxide 27.5 mEq/L (21.0-31.0) 01/15/17 05:10 Anion Gap 7.2 (7.0-16.0) 01/15/17 05:10 BUN 15 mg/dL (7-25) 01/15/17 05:10 Creatinine 0.8 mg/dL (0.6-1.2) 01/15/17 05:10 Est GFR ( Amer) > 60.0 ml/min (>90) 01/15/17 05:10 Est GFR (Non-Af Amer) > 60.0 ml/min 01/15/17 05:10 BUN/Creatinine Ratio 18.8 01/15/17 05:10 Glucose 73 mg/dL (70-105) D 01/15/17 05:10 POC Glucose 81 MG/DL (70 - 105) 01/14/17 03:19 Calcium 9.1 mg/dL (8.6-10.3) 01/15/17 05:10 Total Bilirubin 0.4 mg/dL (0.3-1.0) 01/15/17 05:10 AST 19 U/L (13-39) 01/15/17 05:10 ALT 15 U/L (7-52) 01/15/17 05:10 Alkaline Phosphatase 72 U/L (34-104) 01/15/17 05:10 Total Protein 7.1 gm/dL (6.0-8.3) 01/15/17 05:10 Albumin 3.5 gm/dL (3.7-5.3) L 01/15/17 05:10 Globulin 3.6 gm/dL 01/15/17 05:10 Albumin/Globulin Ratio 1.0 (1.0-1.8) 01/15/17 05:10 Vancomycin Trough 19.6 ug/mL (10-20) 01/15/17 10:00 - Physical Exam Vitals and I&O: Vital Signs Temp 97.2 F 01/16/17 12:00 Pulse 66 01/16/17 12:00 Resp 20 01/16/17 12:00 BP 120/76 01/16/17 12:00 Pulse Ox 98 01/16/17 12:00 Intake & Output 01/15/17 01/16/17 01/16/17 18:59 06:59 18:59 Intake Total 2400 250 Balance 2400 250 Weight (lbs) 119.748 kg 122.64 kg Intake: Intake, IV Amount 750 250 Vancomycin HCl 1 gm In 250 250 Sodium Chloride 0.9% 250 ml @ 165 mls/hr IV Q12HR@ 1100,2300 [facility] Rx#: [id number] Vancomycin HCl 1.5 gm In 500 Sodium Chloride 0.9% 500 ml @ 250 mls/hr IV Q12H [facility] Rx#:[id number] Oral 1650 Other: # Voids 4 # Bowel Movements 0 Active Medications: Current Medications Acetaminophen (Tylenol) 650 mg PO Q6HR PRN PRN Reason: MILD PAIN OR TEMP >100.4 Stop: 03/15/17 07:43 Last Admin: 01/15/17 08:36 Dose: 650 mg Albuterol Sulfate (Albuterol 2.5mg/3ml Neb Ud) 2.5 mg HHN Q4HRT PRN PRN Reason: SOB/WHEEZING Stop: 03/15/17 07:43 Bisacodyl (Dulcolax 10 Mg Supp) 10 mg RC DAILY PRN PRN Reason: IF MOM INEFFECTIVE Stop: 03/15/17 07:43 Diazepam (Valium) 2.5 mg PO HS [facility] PRN Reason: Protocol Stop: 03/15/17 20:59 Last Admin: 01/15/17 20:39 Dose: 2.5 mg Enalapril Maleate (Vasotec) 20 mg PO DAILY [facility] Stop: 03/15/17 08:59 Last Admin: 01/16/17 08:18 Dose: 20 mg Gabapentin (Neurontin) 100 mg PO BID [facility] Stop: 03/15/17 08:59 Last Admin: 01/16/17 08:18 Dose: 100 mg Hydromorphone HCl (Dilaudid) 1 mg IVP Q3HR PRN PRN Reason: pain Stop: 03/15/17 21:59 Hydromorphone HCl (Dilaudid) 2 mg IVP Q3HR PRN PRN Reason: Severe Pain Stop: 03/15/17 21:59 Last Admin: 01/14/17 22:52 Dose: 2 mg Hydroxyzine HCl (Atarax) 50 mg PO QID [facility] Stop: 03/16/17 05:59 Last Admin: 01/16/17 12:39 Dose: 50 mg Vancomycin HCl 1 gm/ Sodium (Chloride) 250 mls @ 165 mls/hr IV Q12HR@1100,2300 [facility] Stop: 03/16/17 11:09 Last Admin: 01/16/17 10:46 Dose: 165 mls/hr Lactobacillus Rhamnosus (Culturelle) 1 each PO DAILY [facility] Stop: 03/18/17 08:59 Lidocaine HCl (Xylocaine Viscous 2%) 15 ml PO QID PRN PRN Reason: Mouth Sore Pain Stop: 03/15/17 17:41 Last Admin: 01/15/17 08:29 Dose: 15 ml Magnesium Hydroxide (Milk Of Magnesia) 30 ml PO DAILY PRN PRN Reason: Constipation Stop: 03/15/17 07:43 Meclizine HCl (Antivert) 25 mg PO TID PRN PRN Reason: VERTIGO Stop: 03/15/17 08:59 Miscellaneous (Vancomycin Iv Per Pharmacy) 1 ea PRN PRN PRN Reason: PROTOCOL Stop: 03/14/17 22:11 Miscellaneous (Probiotic Screen) 1 ea PRN PRN PRN Reason: PROTOCOL Stop: 03/17/17 14:41 Morphine Sulfate (Morphine) 2 mg IVP Q3H PRN PRN Reason: Pain (Severe) Stop: 03/16/17 09:56 Last Admin: 01/16/17 15:18 Dose: 2 mg Ondansetron HCl (Zofran) 4 mg IV Q4H PRN PRN Reason: Nausea Stop: 03/14/17 22:14 Ondansetron HCl (Zofran Odt) 4 mg PO TID PRN PRN Reason: Nausea / Vomiting Stop: 03/15/17 07:43 Pantoprazole Sodium (Protonix) 40 mg PO DAILY [facility] Stop: 03/15/17 08:59 Last Admin: 01/16/17 08:18 Dose: 40 mg Scopolamine (Transderm Scop Patch) 1 patch TD Q72H [facility] Stop: 03/15/17 08:59 Last Admin: 01/14/17 10:06 Dose: 1 patch Tramadol HCl (Ultram) 100 mg PO Q6HR PRN PRN Reason: BREAK THROUGH PAIN Stop: 03/15/17 07:43 Last Admin: 01/16/17 14:26 Dose: 100 mg Vitamin A (Vitamin A & D) 5 gm TP BID [facility] Stop: 03/15/17 08:59 Last Admin: 01/16/17 08:18 Dose: 5 gm General: no acute distress, well developed, well nourished, other (obese) HEENT: atraumatic, normocephalic, PERRLA, EOMI, moist mucous membrane Neck: supple, no thyromegaly Cardiovascular: S1S2, regular Lungs: clear to auscultation bilaterally, clear to percussion Abdomen: soft, no tender, no distended, no mass, no rebound Extremities: no cyanosis, no clubbing, no edema Neurological: awake, alert, oriented Skin: intact, other (I and D wound in left gluteal area.) Infectious Disease Assmt/Plan - Problem List Patient Problems: All Active Problems LEFT HIP PAIN AND SWELLING (Acute) - Assessment Assessment: 1. Left gluteal abscess. 2. Obesity, Morbid. 3. HTN, 4. Arthritis. 5. Fibromyalgia. 6. YAMILKA. 7. Sinusitis. Plan: Contue vancO IV . wound care. [place], afrin nasal, CPAP. - Plan Plan: Continue the same treatment.
[2017-01-16] MEDS: Hydrocodone/APAP 10 mg/325 mg Tab PO PRN ×2 (17:41→23:39)
[2017-01-16] MEDS: Oxymetazoline 0.05% 15 mL Spray NS SCH (21:17)
[2017-01-17] MEDS: Morphine Sulfate 2 mg/mL 1mL Syr IVP PRN ×3 (00:31→21:24)
[2017-01-17] MEDS: Pantoprazole 40 mg EC Tab PO SCH (08:34)
[2017-01-17] MEDS: Lactobacillus Rhamnosus 10 Billion CFU Capsule PO SCH (08:34)
[2017-01-17] MEDS: Vitamin A/Vitamin D 5 gm Packet TP SCH ×2 (08:35→16:39)
[2017-01-17] MEDS: Hydrocodone/APAP 10 mg/325 mg Tab PO PRN ×4 (08:35→23:23)
[2017-01-17] MEDS: Scopolamine 1.5 mg/ 72 hr TDM TD SCH (09:45)
--- NOTE | 2017-01-17 10:46 | Diagnostic Imaging Report ---
Bilateral carotid Doppler ultrasound exam HISTORY: Atherosclerotic vascular disease Sonographic sector images were obtained to the carotid bifurcation regions bilaterally. Associated Doppler data was obtained. The exam of the right side demonstrates generalized intimal thickening through the bifurcation region. No significant focal atherosclerotic plaque is seen. Antegrade vertebral artery flow. Velocities and flow ratios are normal (ICC/CCA equals 0.96). The exam of the left side demonstrates generalized intimal thickening. No significant focal plaque. Antegrade vertebral artery flow. Velocities and flow ratios are normal (ICC/CCA equals 0.83). IMPRESSION 1. No evidence of hemodynamically significant atherosclerotic vascular disease
--- NOTE | 2017-01-17 12:51 | Infectious Disease Prog Note ---
Infectious Disease Subjective - Review of Systems Service Date: 01/17/17 Subjective: no change. painful left gluteal area, improving. Congested nose. Infectious Disease Objective - Results Result Diagrams: 01/15/17 05:10 01/15/17 05:10 Recent Labs: Laboratory Last Values WBC 5.2 Th/cmm (4.8-10.8) D 01/15/17 05:10 RBC 3.78 Mil/cmm (3.80-5.10) L 01/15/17 05:10 Hgb 11.0 gm/dL (12-16) L 01/15/17 05:10 Hct 33.3 % (41.0-60) L 01/15/17 05:10 MCV 88.1 fl (81-100) 01/15/17 05:10 MCH 29.2 pg (27.0-31.0) 01/15/17 05:10 MCHC Differential 33.1 pg (28.0-36.0) 01/15/17 05:10 RDW 13.7 % (11.5-20.0) 01/15/17 05:10 Plt Count 209 Th/cmm (150-400) 01/15/17 05:10 MPV 9.3 fl 01/15/17 05:10 Neutrophils % 52.6 % (40.0-80.0) 01/15/17 05:10 Lymphocytes % 31.3 % (20.0-50.0) 01/15/17 05:10 Monocytes % 10.7 % (2.0-10.0) H 01/15/17 05:10 Eosinophils % 5.0 % (0.0-5.0) 01/15/17 05:10 Basophils % 0.4 % (0.0-2.0) 01/15/17 05:10 Sodium 135 mEq/L (136-145) L 01/15/17 05:10 Potassium 3.7 mEq/L (3.5-5.1) 01/15/17 05:10 Chloride 104 mEq/L (98-107) 01/15/17 05:10 Carbon Dioxide 27.5 mEq/L (21.0-31.0) 01/15/17 05:10 Anion Gap 7.2 (7.0-16.0) 01/15/17 05:10 BUN 15 mg/dL (7-25) 01/15/17 05:10 Creatinine 0.8 mg/dL (0.6-1.2) 01/15/17 05:10 Est GFR ( Amer) > 60.0 ml/min (>90) 01/15/17 05:10 Est GFR (Non-Af Amer) > 60.0 ml/min 01/15/17 05:10 BUN/Creatinine Ratio 18.8 01/15/17 05:10 Glucose 73 mg/dL (70-105) D 01/15/17 05:10 POC Glucose 81 MG/DL (70 - 105) 01/14/17 03:19 Calcium 9.1 mg/dL (8.6-10.3) 01/15/17 05:10 Total Bilirubin 0.4 mg/dL (0.3-1.0) 01/15/17 05:10 AST 19 U/L (13-39) 01/15/17 05:10 ALT 15 U/L (7-52) 01/15/17 05:10 Alkaline Phosphatase 72 U/L (34-104) 01/15/17 05:10 Total Protein 7.1 gm/dL (6.0-8.3) 01/15/17 05:10 Albumin 3.5 gm/dL (3.7-5.3) L 01/15/17 05:10 Globulin 3.6 gm/dL 01/15/17 05:10 Albumin/Globulin Ratio 1.0 (1.0-1.8) 01/15/17 05:10 Vancomycin Trough 25.5 ug/mL (10-20) H 01/16/17 21:56 - Physical Exam Vitals and I&O: Vital Signs Temp 98.1 F 01/17/17 12:00 Pulse 70 01/17/17 12:00 Resp 18 01/17/17 12:00 BP 123/83 01/17/17 12:00 Pulse Ox 99 01/17/17 12:00 Intake & Output 01/16/17 01/17/17 01/17/17 18:59 06:59 18:59 Intake Total 600 250 Balance 600 250 Weight (lbs) 122.47 kg Intake: Intake, IV Amount 250 Vancomycin HCl 1 gm In 250 Sodium Chloride 0.9% 250 ml @ 165 mls/hr IV Q12HR@ 1100,2300 [facility] Rx#: [id number] Oral 600 Other: # Voids 4 # Bowel Movements 1 Active Medications: Current Medications Acetaminophen (Tylenol) 650 mg PO Q6HR PRN PRN Reason: MILD PAIN OR TEMP >100.4 Stop: 03/15/17 07:43 Last Admin: 01/15/17 08:36 Dose: 650 mg Acetaminophen/Hydrocodone Bitart (Center 10 Mg/325 Mg) 1 tab PO Q4H PRN PRN Reason: Pain (Moderate) Stop: 03/17/17 17:18 Last Admin: 01/17/17 12:32 Dose: 1 tab Albuterol Sulfate (Albuterol 2.5mg/3ml Neb Ud) 2.5 mg HHN Q4HRT PRN PRN Reason: SOB/WHEEZING Stop: 03/15/17 07:43 Bisacodyl (Dulcolax 10 Mg Supp) 10 mg RC DAILY PRN PRN Reason: IF MOM INEFFECTIVE Stop: 03/15/17 07:43 Diazepam (Valium) 2.5 mg PO HS [facility] PRN Reason: Protocol Stop: 03/15/17 20:59 Last Admin: 01/16/17 20:55 Dose: 2.5 mg Enalapril Maleate (Vasotec) 20 mg PO DAILY [facility] Stop: 03/15/17 08:59 Last Admin: 01/17/17 08:34 Dose: 20 mg Gabapentin (Neurontin) 100 mg PO BID [facility] Stop: 03/15/17 08:59 Last Admin: 01/17/17 08:34 Dose: 100 mg Hydromorphone HCl (Dilaudid) 1 mg IVP Q3HR PRN PRN Reason: pain Stop: 03/15/17 21:59 Hydromorphone HCl (Dilaudid) 2 mg IVP Q3HR PRN PRN Reason: Severe Pain Stop: 03/15/17 21:59 Last Admin: 01/14/17 22:52 Dose: 2 mg Hydroxyzine HCl (Atarax) 50 mg PO QID [facility] Stop: 03/16/17 05:59 Last Admin: 01/17/17 12:32 Dose: 50 mg Vancomycin HCl 0.75 gm/ Sodium (Chloride) 250 mls @ 165 mls/hr IV Q12H [facility] Stop: 03/18/17 22:59 Lactobacillus Rhamnosus (Culturelle) 1 each PO DAILY [facility] Stop: 03/18/17 08:59 Last Admin: 01/17/17 08:34 Dose: 1 each Lidocaine HCl (Xylocaine Viscous 2%) 15 ml PO QID PRN PRN Reason: Mouth Sore Pain Stop: 03/15/17 17:41 Last Admin: 01/15/17 08:29 Dose: 15 ml Magnesium Hydroxide (Milk Of Magnesia) 30 ml PO DAILY PRN PRN Reason: Constipation Stop: 03/15/17 07:43 Meclizine HCl (Antivert) 25 mg PO TID PRN PRN Reason: VERTIGO Stop: 03/15/17 08:59 Miscellaneous (Vancomycin Iv Per Pharmacy) 1 ea PRN PRN PRN Reason: PROTOCOL Stop: 03/14/17 22:11 Miscellaneous (Probiotic Screen) 1 ea PRN PRN PRN Reason: PROTOCOL Stop: 03/17/17 14:41 Morphine Sulfate (Morphine) 2 mg IVP Q3H PRN PRN Reason: Pain (Severe) Stop: 03/16/17 09:56 Last Admin: 01/17/17 10:30 Dose: 2 mg Ondansetron HCl (Zofran) 4 mg IV Q4H PRN PRN Reason: Nausea Stop: 03/14/17 22:14 Ondansetron HCl (Zofran Odt) 4 mg PO TID PRN PRN Reason: Nausea / Vomiting Stop: 03/15/17 07:43 Oxymetazoline HCl (Afrin) 2 spr NS HS [facility] Stop: 03/17/17 20:59 Last Admin: 01/16/17 21:17 Dose: 2 spr Pantoprazole Sodium (Protonix) 40 mg PO DAILY [facility] Stop: 03/15/17 08:59 Last Admin: 01/17/17 08:34 Dose: 40 mg Scopolamine (Transderm Scop Patch) 1 patch TD Q72H [facility] Stop: 03/15/17 08:59 Last Admin: 01/17/17 09:45 Dose: 1 patch Tramadol HCl (Ultram) 100 mg PO Q6HR PRN PRN Reason: BREAK THROUGH PAIN Stop: 03/15/17 07:43 Last Admin: 01/16/17 20:54 Dose: 100 mg Vitamin A (Vitamin A & D) 5 gm TP BID [facility] Stop: 03/15/17 08:59 Last Admin: 01/17/17 08:35 Dose: 5 gm General: no acute distress, well developed, well nourished, other (obese) HEENT: atraumatic, normocephalic, PERRLA Neck: supple, thyromegaly Cardiovascular: S1S2, regular Lungs: clear to auscultation bilaterally, clear to percussion Abdomen: soft, no tender, no distended Extremities: other (left gluteal cellulitis.), no cyanosis, no clubbing, no edema Neurological: awake, alert, oriented Skin: intact Infectious Disease Assmt/Plan - Problem List Patient Problems: All Active Problems LEFT HIP PAIN AND SWELLING (Acute) - Assessment Assessment: 1. Left gluteal abscess. 2. Obesity, Morbid. 3. HTN, 4. Arthritis. 5. Fibromyalgia. 6. YAMILKA. 7. Sinusitis. Plan: Contue vancO IV for 7 days. wound care. Center, afrin nasal, CPAP. - Plan Plan: Continue the same treatment.
--- NOTE | 2017-01-17 13:06 | General Progress Note ---
Subjective - Review of Systems Service Date: 01/17/17 Events since last encounter: carotid study negative for stenosis Objective - Results Result Diagrams: 01/15/17 05:10 01/15/17 05:10 Recent Labs: Laboratory Last Values WBC 5.2 Th/cmm (4.8-10.8) D 01/15/17 05:10 RBC 3.78 Mil/cmm (3.80-5.10) L 01/15/17 05:10 Hgb 11.0 gm/dL (12-16) L 01/15/17 05:10 Hct 33.3 % (41.0-60) L 01/15/17 05:10 MCV 88.1 fl (81-100) 01/15/17 05:10 MCH 29.2 pg (27.0-31.0) 01/15/17 05:10 MCHC Differential 33.1 pg (28.0-36.0) 01/15/17 05:10 RDW 13.7 % (11.5-20.0) 01/15/17 05:10 Plt Count 209 Th/cmm (150-400) 01/15/17 05:10 MPV 9.3 fl 01/15/17 05:10 Neutrophils % 52.6 % (40.0-80.0) 01/15/17 05:10 Lymphocytes % 31.3 % (20.0-50.0) 01/15/17 05:10 Monocytes % 10.7 % (2.0-10.0) H 01/15/17 05:10 Eosinophils % 5.0 % (0.0-5.0) 01/15/17 05:10 Basophils % 0.4 % (0.0-2.0) 01/15/17 05:10 Sodium 135 mEq/L (136-145) L 01/15/17 05:10 Potassium 3.7 mEq/L (3.5-5.1) 01/15/17 05:10 Chloride 104 mEq/L (98-107) 01/15/17 05:10 Carbon Dioxide 27.5 mEq/L (21.0-31.0) 01/15/17 05:10 Anion Gap 7.2 (7.0-16.0) 01/15/17 05:10 BUN 15 mg/dL (7-25) 01/15/17 05:10 Creatinine 0.8 mg/dL (0.6-1.2) 01/15/17 05:10 Est GFR ( Amer) > 60.0 ml/min (>90) 01/15/17 05:10 Est GFR (Non-Af Amer) > 60.0 ml/min 01/15/17 05:10 BUN/Creatinine Ratio 18.8 01/15/17 05:10 Glucose 73 mg/dL (70-105) D 01/15/17 05:10 POC Glucose 81 MG/DL (70 - 105) 01/14/17 03:19 Calcium 9.1 mg/dL (8.6-10.3) 01/15/17 05:10 Total Bilirubin 0.4 mg/dL (0.3-1.0) 01/15/17 05:10 AST 19 U/L (13-39) 01/15/17 05:10 ALT 15 U/L (7-52) 01/15/17 05:10 Alkaline Phosphatase 72 U/L (34-104) 01/15/17 05:10 Total Protein 7.1 gm/dL (6.0-8.3) 01/15/17 05:10 Albumin 3.5 gm/dL (3.7-5.3) L 01/15/17 05:10 Globulin 3.6 gm/dL 01/15/17 05:10 Albumin/Globulin Ratio 1.0 (1.0-1.8) 01/15/17 05:10 Vancomycin Trough 25.5 ug/mL (10-20) H 01/16/17 21:56 - Physical Exam Vitals and I&O: Vital Signs Temp 98.1 F 01/17/17 12:00 Pulse 70 01/17/17 12:00 Resp 18 01/17/17 12:00 BP 123/83 01/17/17 12:00 Pulse Ox 99 01/17/17 12:00 Intake & Output 01/16/17 01/17/17 01/17/17 18:59 06:59 18:59 Intake Total 600 250 Balance 600 250 Weight (lbs) 122.47 kg Intake: Intake, IV Amount 250 Vancomycin HCl 1 gm In 250 Sodium Chloride 0.9% 250 ml @ 165 mls/hr IV Q12HR@ 1100,2300 [facility] Rx#: [id number] Oral 600 Other: # Voids 4 # Bowel Movements 1 Active Medications: Current Medications Acetaminophen (Tylenol) 650 mg PO Q6HR PRN PRN Reason: MILD PAIN OR TEMP >100.4 Stop: 03/15/17 07:43 Last Admin: 01/15/17 08:36 Dose: 650 mg Acetaminophen/Hydrocodone Bitart ([place] 10 Mg/325 Mg) 1 tab PO Q4H PRN PRN Reason: Pain (Moderate) Stop: 03/17/17 17:18 Last Admin: 01/17/17 12:32 Dose: 1 tab Albuterol Sulfate (Albuterol 2.5mg/3ml Neb Ud) 2.5 mg HHN Q4HRT PRN PRN Reason: SOB/WHEEZING Stop: 03/15/17 07:43 Bisacodyl (Dulcolax 10 Mg Supp) 10 mg RC DAILY PRN PRN Reason: IF MOM INEFFECTIVE Stop: 03/15/17 07:43 Diazepam (Valium) 2.5 mg PO HS [facility] PRN Reason: Protocol Stop: 03/15/17 20:59 Last Admin: 01/16/17 20:55 Dose: 2.5 mg Enalapril Maleate (Vasotec) 20 mg PO DAILY [facility] Stop: 03/15/17 08:59 Last Admin: 01/17/17 08:34 Dose: 20 mg Gabapentin (Neurontin) 100 mg PO BID [facility] Stop: 03/15/17 08:59 Last Admin: 01/17/17 08:34 Dose: 100 mg Hydromorphone HCl (Dilaudid) 1 mg IVP Q3HR PRN PRN Reason: pain Stop: 03/15/17 21:59 Hydromorphone HCl (Dilaudid) 2 mg IVP Q3HR PRN PRN Reason: Severe Pain Stop: 03/15/17 21:59 Last Admin: 01/14/17 22:52 Dose: 2 mg Hydroxyzine HCl (Atarax) 50 mg PO QID [facility] Stop: 03/16/17 05:59 Last Admin: 01/17/17 12:32 Dose: 50 mg Vancomycin HCl 0.75 gm/ Sodium (Chloride) 250 mls @ 165 mls/hr IV Q12H [facility] Stop: 03/18/17 22:59 Lactobacillus Rhamnosus (Culturelle) 1 each PO DAILY [facility] Stop: 03/18/17 08:59 Last Admin: 01/17/17 08:34 Dose: 1 each Lidocaine HCl (Xylocaine Viscous 2%) 15 ml PO QID PRN PRN Reason: Mouth Sore Pain Stop: 03/15/17 17:41 Last Admin: 01/15/17 08:29 Dose: 15 ml Magnesium Hydroxide (Milk Of Magnesia) 30 ml PO DAILY PRN PRN Reason: Constipation Stop: 03/15/17 07:43 Meclizine HCl (Antivert) 25 mg PO TID PRN PRN Reason: VERTIGO Stop: 03/15/17 08:59 Miscellaneous (Vancomycin Iv Per Pharmacy) 1 ea PRN PRN PRN Reason: PROTOCOL Stop: 03/14/17 22:11 Miscellaneous (Probiotic Screen) 1 ea PRN PRN PRN Reason: PROTOCOL Stop: 03/17/17 14:41 Morphine Sulfate (Morphine) 2 mg IVP Q3H PRN PRN Reason: Pain (Severe) Stop: 03/16/17 09:56 Last Admin: 01/17/17 10:30 Dose: 2 mg Ondansetron HCl (Zofran) 4 mg IV Q4H PRN PRN Reason: Nausea Stop: 03/14/17 22:14 Ondansetron HCl (Zofran Odt) 4 mg PO TID PRN PRN Reason: Nausea / Vomiting Stop: 03/15/17 07:43 Oxymetazoline HCl (Afrin) 2 spr NS HS [facility] Stop: 03/17/17 20:59 Last Admin: 01/16/17 21:17 Dose: 2 spr Pantoprazole Sodium (Protonix) 40 mg PO DAILY [facility] Stop: 03/15/17 08:59 Last Admin: 01/17/17 08:34 Dose: 40 mg Scopolamine (Transderm Scop Patch) 1 patch TD Q72H [facility] Stop: 03/15/17 08:59 Last Admin: 01/17/17 09:45 Dose: 1 patch Tramadol HCl (Ultram) 100 mg PO Q6HR PRN PRN Reason: BREAK THROUGH PAIN Stop: 03/15/17 07:43 Last Admin: 01/16/17 20:54 Dose: 100 mg Vitamin A (Vitamin A & D) 5 gm TP BID [facility] Stop: 03/15/17 08:59 Last Admin: 01/17/17 08:35 Dose: 5 gm Assessment/Plan - Problem List Patient Problems: All Active Problems LEFT HIP PAIN AND SWELLING (Acute)
--- NOTE | 2017-01-17 14:55 | General Progress Note ---
Subjective - Review of Systems Events since last encounter: patient improving Objective - Results Result Diagrams: 01/15/17 05:10 01/15/17 05:10 Recent Labs: Laboratory Last Values WBC 5.2 Th/cmm (4.8-10.8) D 01/15/17 05:10 RBC 3.78 Mil/cmm (3.80-5.10) L 01/15/17 05:10 Hgb 11.0 gm/dL (12-16) L 01/15/17 05:10 Hct 33.3 % (41.0-60) L 01/15/17 05:10 MCV 88.1 fl (81-100) 01/15/17 05:10 MCH 29.2 pg (27.0-31.0) 01/15/17 05:10 MCHC Differential 33.1 pg (28.0-36.0) 01/15/17 05:10 RDW 13.7 % (11.5-20.0) 01/15/17 05:10 Plt Count 209 Th/cmm (150-400) 01/15/17 05:10 MPV 9.3 fl 01/15/17 05:10 Neutrophils % 52.6 % (40.0-80.0) 01/15/17 05:10 Lymphocytes % 31.3 % (20.0-50.0) 01/15/17 05:10 Monocytes % 10.7 % (2.0-10.0) H 01/15/17 05:10 Eosinophils % 5.0 % (0.0-5.0) 01/15/17 05:10 Basophils % 0.4 % (0.0-2.0) 01/15/17 05:10 Sodium 135 mEq/L (136-145) L 01/15/17 05:10 Potassium 3.7 mEq/L (3.5-5.1) 01/15/17 05:10 Chloride 104 mEq/L (98-107) 01/15/17 05:10 Carbon Dioxide 27.5 mEq/L (21.0-31.0) 01/15/17 05:10 Anion Gap 7.2 (7.0-16.0) 01/15/17 05:10 BUN 15 mg/dL (7-25) 01/15/17 05:10 Creatinine 0.8 mg/dL (0.6-1.2) 01/15/17 05:10 Est GFR ( Amer) > 60.0 ml/min (>90) 01/15/17 05:10 Est GFR (Non-Af Amer) > 60.0 ml/min 01/15/17 05:10 BUN/Creatinine Ratio 18.8 01/15/17 05:10 Glucose 73 mg/dL (70-105) D 01/15/17 05:10 POC Glucose 81 MG/DL (70 - 105) 01/14/17 03:19 Calcium 9.1 mg/dL (8.6-10.3) 01/15/17 05:10 Total Bilirubin 0.4 mg/dL (0.3-1.0) 01/15/17 05:10 AST 19 U/L (13-39) 01/15/17 05:10 ALT 15 U/L (7-52) 01/15/17 05:10 Alkaline Phosphatase 72 U/L (34-104) 01/15/17 05:10 Total Protein 7.1 gm/dL (6.0-8.3) 01/15/17 05:10 Albumin 3.5 gm/dL (3.7-5.3) L 01/15/17 05:10 Globulin 3.6 gm/dL 01/15/17 05:10 Albumin/Globulin Ratio 1.0 (1.0-1.8) 01/15/17 05:10 Vancomycin Trough 25.5 ug/mL (10-20) H 01/16/17 21:56 - Physical Exam Vitals and I&O: Vital Signs Temp 98.1 F 01/17/17 12:00 Pulse 70 01/17/17 12:00 Resp 18 01/17/17 12:00 BP 123/83 01/17/17 12:00 Pulse Ox 99 01/17/17 12:00 Intake & Output 01/16/17 01/17/17 01/17/17 18:59 06:59 18:59 Intake Total 600 250 Balance 600 250 Weight (lbs) 122.47 kg Intake: Intake, IV Amount 250 Vancomycin HCl 1 gm In 250 Sodium Chloride 0.9% 250 ml @ 165 mls/hr IV Q12HR@ 1100,2300 [facility] Rx#: [id number] Oral 600 Other: # Voids 4 # Bowel Movements 1 Active Medications: Current Medications Acetaminophen (Tylenol) 650 mg PO Q6HR PRN PRN Reason: MILD PAIN OR TEMP >100.4 Stop: 03/15/17 07:43 Last Admin: 01/15/17 08:36 Dose: 650 mg Acetaminophen/Hydrocodone Bitart ([place] 10 Mg/325 Mg) 1 tab PO Q4H PRN PRN Reason: Pain (Moderate) Stop: 03/17/17 17:18 Last Admin: 01/17/17 12:32 Dose: 1 tab Albuterol Sulfate (Albuterol 2.5mg/3ml Neb Ud) 2.5 mg HHN Q4HRT PRN PRN Reason: SOB/WHEEZING Stop: 03/15/17 07:43 Bisacodyl (Dulcolax 10 Mg Supp) 10 mg RC DAILY PRN PRN Reason: IF MOM INEFFECTIVE Stop: 03/15/17 07:43 Diazepam (Valium) 2.5 mg PO HS [facility] PRN Reason: Protocol Stop: 03/15/17 20:59 Last Admin: 01/16/17 20:55 Dose: 2.5 mg Enalapril Maleate (Vasotec) 20 mg PO DAILY [facility] Stop: 03/15/17 08:59 Last Admin: 01/17/17 08:34 Dose: 20 mg Gabapentin (Neurontin) 100 mg PO BID [facility] Stop: 03/15/17 08:59 Last Admin: 01/17/17 08:34 Dose: 100 mg Hydromorphone HCl (Dilaudid) 1 mg IVP Q3HR PRN PRN Reason: pain Stop: 03/15/17 21:59 Hydromorphone HCl (Dilaudid) 2 mg IVP Q3HR PRN PRN Reason: Severe Pain Stop: 03/15/17 21:59 Last Admin: 01/14/17 22:52 Dose: 2 mg Hydroxyzine HCl (Atarax) 50 mg PO QID [facility] Stop: 03/16/17 05:59 Last Admin: 01/17/17 12:32 Dose: 50 mg Vancomycin HCl 0.75 gm/ Sodium (Chloride) 250 mls @ 165 mls/hr IV Q12H [facility] Stop: 03/18/17 22:59 Lactobacillus Rhamnosus (Culturelle) 1 each PO DAILY [facility] Stop: 03/18/17 08:59 Last Admin: 01/17/17 08:34 Dose: 1 each Lidocaine HCl (Xylocaine Viscous 2%) 15 ml PO QID PRN PRN Reason: Mouth Sore Pain Stop: 03/15/17 17:41 Last Admin: 01/15/17 08:29 Dose: 15 ml Magnesium Hydroxide (Milk Of Magnesia) 30 ml PO DAILY PRN PRN Reason: Constipation Stop: 03/15/17 07:43 Meclizine HCl (Antivert) 25 mg PO TID PRN PRN Reason: VERTIGO Stop: 03/15/17 08:59 Miscellaneous (Vancomycin Iv Per Pharmacy) 1 ea PRN PRN PRN Reason: PROTOCOL Stop: 03/14/17 22:11 Miscellaneous (Probiotic Screen) 1 ea PRN PRN PRN Reason: PROTOCOL Stop: 03/17/17 14:41 Morphine Sulfate (Morphine) 2 mg IVP Q3H PRN PRN Reason: Pain (Severe) Stop: 03/16/17 09:56 Last Admin: 01/17/17 10:30 Dose: 2 mg Ondansetron HCl (Zofran) 4 mg IV Q4H PRN PRN Reason: Nausea Stop: 03/14/17 22:14 Ondansetron HCl (Zofran Odt) 4 mg PO TID PRN PRN Reason: Nausea / Vomiting Stop: 03/15/17 07:43 Oxymetazoline HCl (Afrin) 2 spr NS HS [facility] Stop: 03/17/17 20:59 Last Admin: 01/16/17 21:17 Dose: 2 spr Pantoprazole Sodium (Protonix) 40 mg PO DAILY [facility] Stop: 03/15/17 08:59 Last Admin: 01/17/17 08:34 Dose: 40 mg Scopolamine (Transderm Scop Patch) 1 patch TD Q72H [facility] Stop: 03/15/17 08:59 Last Admin: 01/17/17 09:45 Dose: 1 patch Tramadol HCl (Ultram) 100 mg PO Q6HR PRN PRN Reason: BREAK THROUGH PAIN Stop: 03/15/17 07:43 Last Admin: 01/16/17 20:54 Dose: 100 mg Vitamin A (Vitamin A & D) 5 gm TP BID [facility] Stop: 03/15/17 08:59 Last Admin: 01/17/17 08:35 Dose: 5 gm Assessment/Plan - Problem List Patient Problems: All Active Problems LEFT HIP PAIN AND SWELLING (Acute)
[2017-01-17] MEDS: Clotrimazole 1% Vaginal Cream 45 gm Tube VG SCH (19:19)
[2017-01-17] MEDS: Oxymetazoline 0.05% 15 mL Spray NS SCH (21:23)
[2017-01-18] MEDS: Pantoprazole 40 mg EC Tab PO SCH (08:35)
[2017-01-18] MEDS: Vitamin A/Vitamin D 5 gm Packet TP SCH (08:35)
[2017-01-18] MEDS: Lactobacillus Rhamnosus 10 Billion CFU Capsule PO SCH (08:36)
[2017-01-18] MEDS: Clotrimazole 1% Vaginal Cream 45 gm Tube VG SCH (08:38)
[2017-01-18] MEDS: Hydrocodone/APAP 10 mg/325 mg Tab PO PRN (08:41)
--- NOTE | 2017-01-18 09:44 | Internal Medicine Prog Note ---
Internal Medicine Subjective - Subjective Service Date: 01/18/17 Patient seen and examined:: with staff Patient is:: awake Per staff patient has:: tolerating meds Internal Medicine Objective - Results Result Diagrams: 01/15/17 05:10 01/15/17 05:10 Recent Labs: Laboratory Last Values WBC 5.2 Th/cmm (4.8-10.8) D 01/15/17 05:10 RBC 3.78 Mil/cmm (3.80-5.10) L 01/15/17 05:10 Hgb 11.0 gm/dL (12-16) L 01/15/17 05:10 Hct 33.3 % (41.0-60) L 01/15/17 05:10 MCV 88.1 fl (81-100) 01/15/17 05:10 MCH 29.2 pg (27.0-31.0) 01/15/17 05:10 MCHC Differential 33.1 pg (28.0-36.0) 01/15/17 05:10 RDW 13.7 % (11.5-20.0) 01/15/17 05:10 Plt Count 209 Th/cmm (150-400) 01/15/17 05:10 MPV 9.3 fl 01/15/17 05:10 Neutrophils % 52.6 % (40.0-80.0) 01/15/17 05:10 Lymphocytes % 31.3 % (20.0-50.0) 01/15/17 05:10 Monocytes % 10.7 % (2.0-10.0) H 01/15/17 05:10 Eosinophils % 5.0 % (0.0-5.0) 01/15/17 05:10 Basophils % 0.4 % (0.0-2.0) 01/15/17 05:10 Sodium 135 mEq/L (136-145) L 01/15/17 05:10 Potassium 3.7 mEq/L (3.5-5.1) 01/15/17 05:10 Chloride 104 mEq/L (98-107) 01/15/17 05:10 Carbon Dioxide 27.5 mEq/L (21.0-31.0) 01/15/17 05:10 Anion Gap 7.2 (7.0-16.0) 01/15/17 05:10 BUN 15 mg/dL (7-25) 01/15/17 05:10 Creatinine 0.8 mg/dL (0.6-1.2) 01/15/17 05:10 Est GFR ( Amer) > 60.0 ml/min (>90) 01/15/17 05:10 Est GFR (Non-Af Amer) > 60.0 ml/min 01/15/17 05:10 BUN/Creatinine Ratio 18.8 01/15/17 05:10 Glucose 73 mg/dL (70-105) D 01/15/17 05:10 POC Glucose 81 MG/DL (70 - 105) 01/14/17 03:19 Calcium 9.1 mg/dL (8.6-10.3) 01/15/17 05:10 Total Bilirubin 0.4 mg/dL (0.3-1.0) 01/15/17 05:10 AST 19 U/L (13-39) 01/15/17 05:10 ALT 15 U/L (7-52) 01/15/17 05:10 Alkaline Phosphatase 72 U/L (34-104) 01/15/17 05:10 Total Protein 7.1 gm/dL (6.0-8.3) 01/15/17 05:10 Albumin 3.5 gm/dL (3.7-5.3) L 01/15/17 05:10 Globulin 3.6 gm/dL 01/15/17 05:10 Albumin/Globulin Ratio 1.0 (1.0-1.8) 01/15/17 05:10 Vancomycin Trough 25.5 ug/mL (10-20) H 01/16/17 21:56 - Physical Exam Vitals and I&O: Vital Signs Temp 98.4 F 01/18/17 08:41 Pulse 82 01/18/17 08:41 Resp 17 01/18/17 08:41 BP 106/61 01/18/17 08:41 Pulse Ox 98 01/18/17 08:41 Intake & Output 01/17/17 01/18/17 01/18/17 18:59 06:59 18:59 Intake Total 850 Balance 850 Weight (lbs) 265 lb Intake: Oral 850 Other: # Voids 4 # Bowel Movements 0 Active Medications: Current Medications Acetaminophen (Tylenol) 650 mg PO Q6HR PRN PRN Reason: MILD PAIN OR TEMP >100.4 Stop: 03/15/17 07:43 Last Admin: 01/15/17 08:36 Dose: 650 mg Acetaminophen/Hydrocodone Bitart ([place] 10 Mg/325 Mg) 1 tab PO Q4H PRN PRN Reason: Pain (Moderate) Stop: 03/17/17 17:18 Last Admin: 01/18/17 08:41 Dose: 1 tab Albuterol Sulfate (Albuterol 2.5mg/3ml Neb Ud) 2.5 mg HHN Q4HRT PRN PRN Reason: SOB/WHEEZING Stop: 03/15/17 07:43 Bisacodyl (Dulcolax 10 Mg Supp) 10 mg RC DAILY PRN PRN Reason: IF MOM INEFFECTIVE Stop: 03/15/17 07:43 Diazepam (Valium) 2.5 mg PO HS [facility] PRN Reason: Protocol Stop: 03/15/17 20:59 Last Admin: 01/17/17 21:23 Dose: 2.5 mg Enalapril Maleate (Vasotec) 20 mg PO DAILY [facility] Stop: 03/15/17 08:59 Last Admin: 01/18/17 08:36 Dose: 20 mg Fluconazole (Diflucan) 150 mg PO DAILY [facility] Stop: 03/19/17 08:59 Last Admin: 01/18/17 08:36 Dose: 150 mg Gabapentin (Neurontin) 100 mg PO BID [facility] Stop: 03/15/17 08:59 Last Admin: 01/18/17 08:36 Dose: 100 mg Hydromorphone HCl (Dilaudid) 1 mg IVP Q3HR PRN PRN Reason: pain Stop: 03/15/17 21:59 Hydromorphone HCl (Dilaudid) 2 mg IVP Q3HR PRN PRN Reason: Severe Pain Stop: 03/15/17 21:59 Last Admin: 01/14/17 22:52 Dose: 2 mg Hydroxyzine HCl (Atarax) 50 mg PO QID [facility] Stop: 03/16/17 05:59 Last Admin: 01/18/17 08:36 Dose: 50 mg Vancomycin HCl 0.75 gm/ Sodium (Chloride) 250 mls @ 165 mls/hr IV Q12H [facility] Stop: 03/18/17 22:59 Last Admin: 01/17/17 23:25 Dose: 165 mls/hr Lactobacillus Rhamnosus (Culturelle) 1 each PO DAILY [facility] Stop: 03/18/17 08:59 Last Admin: 01/18/17 08:36 Dose: 1 each Lidocaine HCl (Xylocaine Viscous 2%) 15 ml PO QID PRN PRN Reason: Mouth Sore Pain Stop: 03/15/17 17:41 Last Admin: 01/15/17 08:29 Dose: 15 ml Magnesium Hydroxide (Milk Of Magnesia) 30 ml PO DAILY PRN PRN Reason: Constipation Stop: 03/15/17 07:43 Meclizine HCl (Antivert) 25 mg PO TID PRN PRN Reason: VERTIGO Stop: 03/15/17 08:59 Miconazole Nitrate (Miconazole 2% Cream) 1 appl VG BID [facility] Stop: 01/25/17 09:59 Miscellaneous (Vancomycin Iv Per Pharmacy) 1 ea PRN PRN PRN Reason: PROTOCOL Stop: 03/14/17 22:11 Miscellaneous (Probiotic Screen) 1 ea PRN PRN PRN Reason: PROTOCOL Stop: 03/17/17 14:41 Morphine Sulfate (Morphine) 2 mg IVP Q3H PRN PRN Reason: Pain (Severe) Stop: 03/16/17 09:56 Last Admin: 01/17/17 21:24 Dose: 2 mg Ondansetron HCl (Zofran) 4 mg IV Q4H PRN PRN Reason: Nausea Stop: 03/14/17 22:14 Ondansetron HCl (Zofran Odt) 4 mg PO TID PRN PRN Reason: Nausea / Vomiting Stop: 03/15/17 07:43 Oxymetazoline HCl (Afrin) 2 spr NS HS [facility] Stop: 03/17/17 20:59 Last Admin: 01/17/17 21:23 Dose: 2 spr Pantoprazole Sodium (Protonix) 40 mg PO DAILY [facility] Stop: 03/15/17 08:59 Last Admin: 01/18/17 08:35 Dose: 40 mg Scopolamine (Transderm Scop Patch) 1 patch TD Q72H [facility] Stop: 03/15/17 08:59 Last Admin: 01/17/17 09:45 Dose: 1 patch Tramadol HCl (Ultram) 100 mg PO Q6HR PRN PRN Reason: BREAK THROUGH PAIN Stop: 03/15/17 07:43 Last Admin: 01/16/17 20:54 Dose: 100 mg Vitamin A (Vitamin A & D) 5 gm TP BID [facility] Stop: 03/15/17 08:59 Last Admin: 01/18/17 08:35 Dose: 5 gm General: alert HEENT: NC/AT, PERRLA Neck: Supple Lungs: CTAB Cardiovascular: RRR, Normal S1, Normal S2 Abdomen: soft, non-tender Internal Medicine Assmt/Plan - Assessment Assessment: Current Active Problems Problem Status Onset LEFT HIP PAIN AND SWELLING Acute hypokalemia bilateral buttock cellulitis HTN Arthritis fibromyalgia - Plan Plan: empiric ivantibiotics id f/u pain mgmt follow up labs in am
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
== END 2017-01-18 12:27 | disposition home or self-care (01) | DRG 603 ==
LOC: ER 18:17 → MSI 22:15
PROVIDERS: ADMIT Internal Medicine; ATTEND Internal Medicine
PROC: 0H98XZZ Drainage of Buttock Skin, External Approach (ICD-10-PCS; principal; 2017-01-14)
DX: L03.317 Cellulitis of buttock (principal); E66.01 Morbid (severe) obesity due to excess calories; Z68.42 Body mass index [BMI] 45.0-49.9, adult; L02.31 Cutaneous abscess of buttock; E87.6 Hypokalemia; R42 Dizziness and giddiness; I10 Essential (primary) hypertension; M19.90 Unspecified osteoarthritis, unspecified site; M79.7 Fibromyalgia; F32.9 Major depressive disorder, single episode, unspecified; G47.33 Obstructive sleep apnea (adult) (pediatric); Z96.653 Presence of artificial knee joint, bilateral; J32.9 Chronic sinusitis, unspecified; Z87.820 Personal history of traumatic brain injury; Z88.0 Allergy status to penicillin; Z83.3 Family history of diabetes mellitus; Z82.49 Family history of ischemic heart disease and other diseases of the circulatory system; Z90.49 Acquired absence of other specified parts of digestive tract; Z87.891 Personal history of nicotine dependence; Z98.84 Bariatric surgery status; Z79.51 Long term (current) use of inhaled steroids
CPT/HCPCS: 36415-UA; 71010-TC; 80048-TC; 80053-TC; 80202-TC; 82948-90; 85025-TC; 87070-90; 87075-90; 87086-90; 87205-90; 93880-TC; 94760; J1170; J2001; J2270; J2704; J3370; J7030; J7040; Z7610